=== PATIENT | male | born 1975 ===

== ENCOUNTER 2021-02-13 23:22 | Emergency (ER) | payer MEDICARE, OTHER ==
[2021-02-14 00:10] VITALS: BP 132/74
== END 2021-02-14 02:14 | disposition left against medical advice (07) ==
LOC: EMS 23:31
DX: S01.81XA Laceration without foreign body of other part of head, initial encounter (principal); X58.XXXA Exposure to other specified factors, initial encounter; Y93.89 Activity, other specified; Y92.89 Other specified places as the place of occurrence of the external cause; Y99.8 Other external cause status; Z53.21 Procedure and treatment not carried out due to patient leaving prior to being seen by health care provider